=== PATIENT | male | born 1995 | race Caucasian/White ===

== ENCOUNTER 2017-12-20 09:50 | Outpatient (REF) | payer SELFPAY ==
[2017-12-20 21:25] LABS: TSH 3.76 uIU/mL (0.358-3.74)
[2017-12-22 18:06] LABS: Tissue Transglutaminase Ab IgA <1.2 U/mL
== END 2017-12-20 09:51 ==
LOC: NCHCN 09:50
PROVIDERS: PCP Physician Assistant Medical; Visit Provider Physician Assistant Medical
DX: K21.9 Gastro-esophageal reflux disease without esophagitis (principal)
CPT/HCPCS: 83516; 84443